=== PATIENT | male | born 1980 | race Hispanic/Latino ===

== ENCOUNTER 2017-01-26 07:44 | Emergency (ER) | payer SELFPAY ==
[~2017-01-26] VITALS: Ht 165.1 cm; Wt 65.0 kg
[~2017-01-26 07:44] MED LIST: ULTRAM50 M1 PO
[2017-01-26] MEDS ORDERED: CIPROFLOXACN750 MG PO (07:54)
[2017-01-26] MEDS ORDERED: PERCOCET 5/325M1 TAB PO (07:54)
[2017-01-26 09:00] VITALS: BP 185/93
== END 2017-01-26 09:00 | disposition home or self-care (01) | DRG 563 ==
LOC: ED 07:44
PROC: 0HQGXZZ Repair Left Hand Skin, External Approach (ICD-10-PCS; principal; 2017-01-26)
PROC: 2W3KX1Z Immobilization of Left Finger using Splint (ICD-10-PCS; 2017-01-26)
DX: S62.633B Displaced fracture of distal phalanx of left middle finger, initial encounter for open fracture (principal); W31.89XA Contact with other specified machinery, initial encounter; Y93.H2 Activity, gardening and landscaping; Y92.007 Garden or yard of unspecified non-institutional (private) residence as the place of occurrence of the external cause

== ENCOUNTER 2017-01-28 09:11 | Emergency (ER) | payer SELFPAY ==
[~2017-01-28] VITALS: Ht 165.1 cm; Wt 70.0 kg
[~2017-01-28 09:11] MED LIST changes: +CIPROFLOXACN750 MG PO; +PERCOCET 5/325M1 TAB PO
[2017-01-28] MEDS ORDERED: KEFLEX500 MG PO (09:44)
[2017-01-28 09:55] VITALS: BP 120/71
== END 2017-01-28 09:55 | disposition home or self-care (01) | DRG 561 ==
LOC: ED 09:11
DX: S62.633D Displaced fracture of distal phalanx of left middle finger, subsequent encounter for fracture with routine healing (principal); Z48.01 Encounter for change or removal of surgical wound dressing

== ENCOUNTER 2017-01-31 08:12 | Emergency (ER) | payer SELFPAY ==
[~2017-01-31] VITALS: Ht 165.1 cm; Wt 70.0 kg
[~2017-01-31 08:12] MED LIST changes: +KEFLEX500 MG PO
[2017-01-31 08:45] VITALS: BP 129/80
== END 2017-01-31 08:45 | disposition home or self-care (01) | DRG 950 ==
LOC: ED 08:12
DX: S61.203D Unspecified open wound of left middle finger without damage to nail, subsequent encounter (principal); X58.XXXD Exposure to other specified factors, subsequent encounter

== ENCOUNTER 2017-02-05 10:35 | Emergency (ER) | payer SELFPAY ==
[~2017-02-05] VITALS: Ht 165.1 cm; Wt 70.0 kg
[2017-02-05 11:00] VITALS: BP 126/80
== END 2017-02-05 11:00 | disposition home or self-care (01) | DRG 561 ==
LOC: ED 10:35
DX: S62.633D Displaced fracture of distal phalanx of left middle finger, subsequent encounter for fracture with routine healing (principal); Z48.02 Encounter for removal of sutures

== ENCOUNTER 2022-07-18 09:56 | Emergency (ER) | payer SELFPAY ==
[~2022-07-18] VITALS: Ht 165.1 cm; Wt 72.0 kg
[2022-07-18 10:24] VITALS: BP 149/85
[2022-07-18 10:30] VITALS: BP 138/89
[2022-07-18] MEDS ORDERED: MOTRIN400 MG/TAB PO (12:13)
[2022-07-18 12:23] VITALS: BP 138/89
== END 2022-07-18 12:27 | disposition home or self-care (01) | DRG 204 ==
LOC: ED 09:56
DX: R07.81 Pleurodynia (principal); W18.30XA Fall on same level, unspecified, initial encounter

== ENCOUNTER 2024-05-27 08:23 | Emergency (ER) | payer SELFPAY ==
[~2024-05-27] VITALS: Ht 165.1 cm; Wt 64.0 kg
[2024-05-27] VITALS (7 sets, daily range): BP systolic 127–152; BP diastolic 86–106
[~2024-05-27 08:23] MED LIST changes: +MOTRIN400 MG/TAB PO
[2024-05-27] MEDS ORDERED: Diph, Acellular Pertussis, Tet 0.5 ML/VIAL (Tdap) SDV IM ONE (08:55)
[2024-05-27 09:43] LABS: URINE BILIRUBIN - DIPSTICK Negative (NEGATIVE); URINE BLOOD DIPSTICK Trace-lysed (NEGATIVE); URINE GLUCOSE - DIPSTICK Negative (NEGATIVE); URINE KETONE Negative (NEGATIVE); URINE LEUK ESTERASE Negative (NEGATIVE); URINE NITRITE - DIPSTICK Negative (Negative); URINE PH 6.5 (4.5-8.0); URINE PROTEIN - DIPSTICK Trace mg/dL (NEG-TRACE); URINE UROBILINOGEN - DIPSTICK 0.2 E.U./dL (0.2)
[2024-05-27 09:44] LABS: URINE COLOR Yellow
[2024-05-27] MEDS ORDERED: NAPROXEN500 MG PO (10:01)
[2024-05-27] MEDS ORDERED: CEPHALEXIN500 M1 PO (10:03)
== END 2024-05-27 10:22 | disposition home or self-care (01) | DRG 605 ==
LOC: ED 08:23
PROVIDERS: Family Medicine
DX: S20.212A Contusion of left front wall of thorax, initial encounter (principal); S31.21XA Laceration without foreign body of penis, initial encounter; W11.XXXA Fall on and from ladder, initial encounter
CPT/HCPCS: 90715